=== PATIENT | female | born 1950 | race Caucasian/White ===

== ENCOUNTER → 2016-06-06 | Outpatient (CLI) | payer MEDICARE, OTHER ==
[~2016-06-06] MED LIST: AMOXICILLIN 8751 TAB PO; ANTIVERT 25MG25 MG PO; ATORVASTATIN; BENTYL; CIPRO 500MG TA500 MG PO; CLEOCIN HCL300 MG PO; CYMBALTA; DETROL LA4 PO; DIFLUCAN200 MG PO; EFFEXOR-XR150 MG PO; GENTAMICIN180 MG/501; KLONOPIN 1MG1 MG PO; LAMICTAL 100MG100 MG PO; LEVAQUIN 5500 MG/TA1 PO; NEXIUM 40MG40 MG PO; NEXIUM40 MG PO; NORCO 325 MG-51 TAB PO; OMNICEF 300MG300 MG PO; PAXIL 20MG20 MG PO; PAXIL PO; PHENERGAN W/CO120 M1 PO; PREDNISONE20 MG PO; PYRIDIUM200 M1 PO; VALIUM 5MG T5 MG/TAB PO; ZITHROMAX 250M250 MG PO; ZOFRAN ODT4 MG PO; [UNRECOGNIZED DRUG - OTHER]; magic mouth wash
== END ==
LOC: BHSO 09:38
DX: F41.1 Generalized anxiety disorder (principal)

== ENCOUNTER → 2016-08-31 | Outpatient (CLI) | payer MEDICARE, OTHER | LOC: BHSO 14:59 | DX: F31.73 Bipolar disorder, in partial remission, most recent episode manic (principal) ==

== ENCOUNTER → 2016-10-20 | Outpatient (CLI) | payer MEDICARE, OTHER | LOC: BHSO 11:17 | DX: F41.1 Generalized anxiety disorder (principal) ==

== ENCOUNTER → 2017-03-27 | Outpatient (CLI) | payer MEDICARE, OTHER | LOC: BHSO 09:45 | DX: F31.73 Bipolar disorder, in partial remission, most recent episode manic (principal) ==

== ENCOUNTER → 2017-05-30 | Outpatient (CLI) | payer MEDICARE, OTHER | LOC: BHSO 10:55 | DX: F41.1 Generalized anxiety disorder (principal) | CPT/HCPCS: G0463 ==

== ENCOUNTER → 2017-11-20 | Outpatient (CLI) | payer MEDICARE, OTHER | LOC: BHSO 08:43 | DX: F33.41 Major depressive disorder, recurrent, in partial remission (principal) | CPT/HCPCS: G0463 ==

== ENCOUNTER → 2018-05-06 | Outpatient (CLI) | payer MEDICARE, OTHER | LOC: BHSO 10:19 | DX: F41.1 Generalized anxiety disorder (principal) | CPT/HCPCS: G0463 ==

== ENCOUNTER → 2018-12-13 | Outpatient (CLI) | payer MEDICARE, OTHER | LOC: BHSO 09:21 | DX: F41.1 Generalized anxiety disorder (principal) | CPT/HCPCS: G0463 ==

== ENCOUNTER → 2019-10-29 | Outpatient (CLI) | payer MEDICARE, OTHER | LOC: BHSO 14:23 | DX: F41.1 Generalized anxiety disorder (principal) ==